=== PATIENT | male | born 1955 | race Caucasian/White ===

== ENCOUNTER 2017-05-07 20:42 | Emergency (ER) | payer OTHER, MEDICARE, MEDICAID ==
[~2017-05-07 20:42] MED LIST: HYDR-3534 PO
[2017-05-07 20:48] VITALS: BP 132/77; PULSE 92; RESP 16; TEMP 98.6; O2SAT 96
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
[2017-05-07 23:42] VITALS: BP 115/64; PULSE 79; RESP 14; O2SAT 96
[2017-05-07] MEDS ORDERED: AMIT50TA3 PO (23:42)
[2017-05-07] MEDS ORDERED: MORPHINE SULFATE 4 MG/ML INJ IV PUSH ONE (23:45)
[2017-05-07] MEDS ORDERED: ONDANSETRON HCL 4 MG/2 ML VIAL IV PUSH ONE (23:45)
[2017-05-07] MEDS ORDERED: KETOROLAC TROMETHAMINE 30 MG/ML (IVP) VIAL IV PUSH ONE (23:45)
[2017-05-07] MEDS ORDERED: SODIUM CHLOR 0.9% 1000 ML INJ 1,000 ML IV ONE (23:45)
[2017-05-08 01:15] VITALS: BP 117/73; PULSE 75; RESP 16; O2SAT 98
[2017-05-08] MEDS ORDERED: IBUP-232 PO (01:40)
== END 2017-05-08 06:29 | disposition home or self-care (01) ==
LOC: NEPE 20:42
DX: S32.009A Unspecified fracture of unspecified lumbar vertebra, initial encounter for closed fracture (principal); V89.2XXA Person injured in unspecified motor-vehicle accident, traffic, initial encounter; J44.9 Chronic obstructive pulmonary disease, unspecified; F41.9 Anxiety disorder, unspecified; K21.9 Gastro-esophageal reflux disease without esophagitis; I10 Essential (primary) hypertension
CPT/HCPCS: 96361; 96374; 96375; 99284; J1885; J2270; J2405; J7030

== ENCOUNTER 2017-05-08 19:51 | Emergency (ER) | payer MEDICARE, MEDICAID ==
[~2017-05-08] VITALS: Ht 180.3 cm; Wt 96.0 kg
[~2017-05-08 19:51] MED LIST changes: +AMIT50TA3 PO; +IBUP-232 PO
[2017-05-08 20:04] VITALS: BP 128/53; PULSE 95; RESP 20; TEMP 98.4; O2SAT 98
[2017-05-08] MEDS ORDERED: SODIUM CHLOR 0.9% 1000 ML INJ 1,000 ML IV ONE (20:15)
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
--- NOTE | 2017-05-09 02:53 | PD ---
Physical Exam Narrative Patient was seen by my training assistant and signed out to me. Data Data Last Documented VS Vital Signs Date Time Temp Pulse Resp B/P (MAP) Pulse Ox O2 Delivery O2 Flow Rate FiO2 05/08/17 20:04 98.4 95 20 128/53 (78) 98 Orders Orders Alcohol (Ethanol) (05/08/17 20:15) Iv Access Insert/Monitor (05/08/17 20:15) Sodium Chlor 0.9% 1000 Ml Inj (Ns 1000 M (05/08/17 20:15) Labs Laboratory Tests Test 05/08/17 20:30 Ethyl Alcohol Level 178 MG/DL MDM Supervised Visit with ISAIAS: Yes Interpretation(s) 2:52 AM. Alcohol 178. Narrative Course 2:52 AM. Patient's awake and alert and steady on his feet. Patient can be safely discharged. Diagnosis Primary Impression: Acute alcohol intoxication Qualified Codes: F10.929 - Alcohol use, unspecified with intoxication, unspecified Referrals: Primary Care Physician As scheduled Patient Instructions: Moderate Sedation in Children (ED) Additional Instruction: Follow-up with your primary doctor Take previously prescribed ibuprofen as needed and as directed for pain Apply warm moist heat to the affected area Return to emergency department for any new or worsening symptoms Med/Other Pt SpecificInfo: No Meds Exist/No RX given Disposition: 01 DISCHARGE HOME Condition: Stable Marcin Quigley MD May 09, 2017 02:53
== END 2017-05-09 03:48 | disposition home or self-care (01) ==
LOC: NEPC 19:51
DX: F10.929 Alcohol use, unspecified with intoxication, unspecified (principal); Y90.6 Blood alcohol level of 120-199 mg/100 ml; Z79.899 Other long term (current) drug therapy
CPT/HCPCS: 80307; 99283; J7030

== ENCOUNTER 2017-08-20 20:28 | Emergency (ER) | payer MEDICARE, MEDICAID ==
[2017-08-20 21:17] VITALS: BP 127/77; PULSE 103; RESP 18; TEMP 98.5; O2SAT 95
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
[2017-08-20] MEDS ORDERED: LORazepam 2 MG TAB PO PRN (23:15)
[2017-08-20] MEDS ORDERED: LORazepam 2 MG/ML VIAL IV PUSH PRN ×4 (23:15)
[2017-08-20] MEDS ORDERED: FLUMAZENIL 0.5 MG/5 ML VIAL IV PUSH PRN (23:15)
[2017-08-20] MEDS ORDERED: LORazepam 1 MG TAB PO PRN (23:15)
[2017-08-21 02:00] VITALS: BP 130/62; PULSE 102; RESP 17; TEMP 98.1; O2SAT 17; O2SAT 98
[2017-08-21 06:56] VITALS: BP 131/68; PULSE 93; RESP 17; TEMP 98.5; O2SAT 97
[2017-08-21] MEDS ORDERED: BUTR10DI T-DERMAL (12:35)
[2017-08-21] MEDS ORDERED: NORT25CA PO (12:36)
[2017-08-21] MEDS ORDERED: DIAZ10TA PO (12:37)
[2017-08-21] MEDS ORDERED: DULO1CAP2 PO (12:38)
[2017-08-21] MEDS ORDERED: IBUPROFEN 800 MG TAB PO ONE (14:00)
[2017-08-21 14:19] VITALS: BP 168/94; PULSE 98; RESP 16; TEMP 98.8; O2SAT 98
--- NOTE | 2017-08-21 15:10 | PD ---
Physical Exam Time Seen by Provider: 15:[address] Loco has evaluated the patient and cleared the patient for discharge. Data Data Last Documented VS Vital Signs Date Time Temp Pulse Resp B/P (MAP) Pulse Ox O2 Delivery O2 Flow Rate FiO2 08/21/17 14:19 98.8 98 16 168/94 (118) 98 08/21/17 06:56 Room Air Orders Orders Psych Screen (08/20/17 20:45) Alcohol Withdrawal Asmt-Ciwa ONCE (08/20/17 23:14) Flumazenil Inj (Romazicon Inj) (08/20/17 23:15) Lorazepam (Ativan) (08/20/17 23:15) Lorazepam Inj (Ativan Inj) (08/20/17 23:15) Lorazepam (Ativan) (08/20/17 23:15) Lorazepam Inj (Ativan Inj) (08/20/17 23:15) Lorazepam Inj (Ativan Inj) (08/20/17 23:15) Lorazepam Inj (Ativan Inj) (08/20/17 23:15) Diet Regular Basic (08/21/17 Breakfast) Diet Regular Basic (08/21/17 Lunch) Ibuprofen (Motrin) (08/21/17 14:00) MDM Supervised Visit with ISAIAS: No Narrative Course Dr. Loco has evaluated the patient and cleared the patient for discharge. Patient contracts safety. Denies suicidal or homicidal ideations. Patient will be provided community resource packet to [facility] for follow-up. Has friends and family for support. Patient was medically cleared by alternate provider prior to psych screening. Patient has been evaluated by psychiatry and and is now cleared for discharge. Diagnosis Primary Impression: Substance induced mood disorder Referrals: Primary Care Physician Patient Instructions: General Instructions, Mood Disorders (ED), Polysubstance Abuse (ED) Additional Instruction: Contract safety to your self and others Stop using drugs Follow-up with psychiatry Follow-up with primary care provider Follow-up with Axel Delong Return to the emergency department immediately with worsening of symptoms Med/Other Pt SpecificInfo: No Change to Meds, No Meds Exist/No RX given Disposition: 01 DISCHARGE HOME Condition: Stable Duyen Garrett Aug 21, 2017 15:10
== END 2017-08-21 16:10 | disposition home or self-care (01) ==
LOC: NEPJ 20:28
DX: F19.94 Other psychoactive substance use, unspecified with psychoactive substance-induced mood disorder (principal); M19.90 Unspecified osteoarthritis, unspecified site; E78.00 Pure hypercholesterolemia, unspecified; F32.9 Major depressive disorder, single episode, unspecified; J44.9 Chronic obstructive pulmonary disease, unspecified; K21.9 Gastro-esophageal reflux disease without esophagitis; I10 Essential (primary) hypertension; B19.20 Unspecified viral hepatitis C without hepatic coma; Z72.0 Tobacco use
CPT/HCPCS: 12001; 70450; 71045; 72125; 80048; 80307; 82550; 82552; 83735; 84484; 85025; 85610; 85730; 90471; 90714; 93005; 99284

== ENCOUNTER 2017-08-22 10:16 | Emergency (ER) | payer MEDICARE, MEDICAID ==
[~2017-08-22] VITALS: Ht 182.9 cm; Wt 95.0 kg
[~2017-08-22 10:16] MED LIST changes: -AMIT50TA3 PO; +BUTR10DI T-DERMAL; +DIAZ10TA PO; +DULO1CAP2 PO; -HYDR-3534 PO; -IBUP-232 PO; +NORT25CA PO
[2017-08-22 10:22] VITALS: BP 127/86; PULSE 71; RESP 18; TEMP 97.7; O2SAT 99
[2017-08-22] MEDS ORDERED: SODIUM CHLOR 0.9% 1000 ML INJ 1,000 ML IV ONE (11:31)
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
[2017-08-22] MEDS ORDERED: SODIUM CHLORIDE 0.9% FLUSH 10 ML FLUSH IVF PRN (11:45)
[2017-08-22 12:34] LABS: AUTOMATED NEUTROPHIL # 3.2 TH/MM3 (1.8-7.7); BASOPHIL # 0.1 TH/MM3 (0-0.2); BASOPHIL % 1.2 % (0.0-2.0); EOSINOPHIL # 0.1 TH/MM3 (0-0.4); EOSINOPHIL % 1.8 % (0.0-4.0); HEMATOCRIT 41.9 % (39.0-51.0); HEMOGLOBIN 14.3 GM/DL (13.0-17.0); LYMPHOCYTE # 1.5 TH/MM3 (1.0-4.8); MEAN CELL VOLUME 93.5 FL (80.0-100.0); MEAN CORPUSCULAR HEMOGLOBIN 31.9 PG (27.0-34.0); MEAN CORPUSCULAR HGB CONC 34.1 % (32.0-36.0); MEAN PLATELET VOLUME 6.3 FL (7.0-11.0); MONO % 6.5 % (0.0-8.0); MONOCYTE # 0.3 TH/MM3 (0-0.9); NEUT % 62.5 % (16.0-70.0); PLATELET COUNT 200 TH/MM3 (150-450); RED BLOOD COUNT 4.48 MIL/MM3 (4.50-5.90); RED CELL DISTRIBUTION WIDTH 13.6 % (11.6-17.2); WHITE BLOOD COUNT 5.2 TH/MM3 (4.0-11.0)
[2017-08-22 13:00] LABS: CALCIUM 8.8 MG/DL (8.5-10.1); CREATININE 0.62 MG/DL (0.60-1.30)
[2017-08-22 14:02] VITALS: BP 125/89
== END 2017-08-22 15:07 | disposition home or self-care (01) ==
LOC: NEPE 10:16
DX: F10.129 Alcohol abuse with intoxication, unspecified (principal); R42 Dizziness and giddiness; M19.90 Unspecified osteoarthritis, unspecified site; F41.9 Anxiety disorder, unspecified; E78.00 Pure hypercholesterolemia, unspecified; J44.9 Chronic obstructive pulmonary disease, unspecified; K21.9 Gastro-esophageal reflux disease without esophagitis; I10 Essential (primary) hypertension; Z79.899 Other long term (current) drug therapy
CPT/HCPCS: 80048; 80307; 85025; 96360; 99284; J7030

== ENCOUNTER 2017-12-21 22:53 | Inpatient (IN) | payer OTHER, MEDICARE ==
[~2017-12-21] VITALS: Ht 180.3 cm; Wt 101.2 kg
[~2017-12-21 22:53] MED LIST changes: -DIAZ10TA PO
[2017-12-22 00:35] VITALS: BP 119/64; PULSE 69; RESP 15; TEMP 97.6; O2SAT 99
[2017-12-22] MEDS ORDERED: GABA100C4 PO (01:04)
[2017-12-22] MEDS ORDERED: CLON0.1T PO (01:05)
[2017-12-22] MEDS ORDERED: DIAZ10TA PO (01:06)
[2017-12-22] MEDS ORDERED: MELO15TA20 PO (01:07)
[2017-12-22] MEDS ORDERED: LISI-519 PO (01:08)
[2017-12-22] MEDS ORDERED: OMEP20TA93 PO (01:09)
[2017-12-22] MEDS ORDERED: hydrOXYzine HCL 50 MG TAB PO PRN ×2 (01:45→10:30)
[2017-12-22] MEDS ORDERED: diphenhydrAMINE HCL 50 MG CAP PO PRN (01:45)
[2017-12-22] MEDS ORDERED: ALUMINUM/MAGNESIUM/SIMETH 30 ML CUP PO PRN (01:45)
[2017-12-22] MEDS ORDERED: diphenhydrAMINE HCL 50 MG/ML VIAL - HS PRN IM (01:45)
[2017-12-22] MEDS ORDERED: MAGNESIUM HYDROXIDE SUSP 30 ML CUP PO PRN (01:45)
[2017-12-22] MEDS ORDERED: diphenhydrAMINE HCL 50 MG/ML VIAL IM PRN (01:45)
[2017-12-22] MEDS ORDERED: diphenhydrAMINE HCL 50 MG CAP - HS PRN PO (01:45)
[2017-12-22] MEDS ORDERED: LORazepam 1 MG TAB PO PRN (02:00)
[2017-12-22] MEDS ORDERED: FLUMAZENIL 0.5 MG/5 ML VIAL IV PUSH PRN (02:00)
[2017-12-22] MEDS ORDERED: LORazepam 2 MG/ML VIAL IV PUSH PRN ×4 (02:00)
[2017-12-22] MEDS ORDERED: LORazepam 2 MG TAB PO PRN (02:00)
[2017-12-22 05:42] VITALS: BP 128/65; PULSE 75; RESP 18; TEMP 98; O2SAT 97
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
== END 2017-12-22 14:05 | disposition home or self-care (01) | DRG 882 ==
LOC: H260 12-22 00:30
PROVIDERS: ADMIT Psychiatry & Neurology Psychiatry; ATTEND Psychiatry & Neurology Psychiatry
DX: F43.25 Adjustment disorder with mixed disturbance of emotions and conduct (principal); R45.851 Suicidal ideations; F14.10 Cocaine abuse, uncomplicated; F10.10 Alcohol abuse, uncomplicated; M54.9 Dorsalgia, unspecified; G89.29 Other chronic pain; Z59.0 Homelessness; Z81.8 Family history of other mental and behavioral disorders; Z91.5 Personal history of self-harm